=== PATIENT | female | born 1990 | race Caucasian/White ===

== ENCOUNTER 2019-06-21 19:09 | Emergency (ER) | payer BC, OTHER ==
[~2019-06-21] VITALS: Ht 162.6 cm; Wt 69.9 kg
[~2019-06-21 19:09] MED LIST: ACET500C5 PO; AZIT250T PO; D-ME473S2 PO; ONDA4TAB14 PO
[2019-06-21 19:25] VITALS: BP 137/63; PULSE 78; RESP 22; Ht 162.6 cm; Wt 69.9 kg
== END 2019-06-21 19:50 | disposition home or self-care (01) ==
LOC: E/R 19:09
DX: J20.9 Acute bronchitis, unspecified (principal); J45.909 Unspecified asthma, uncomplicated
CPT/HCPCS: 99283